=== PATIENT | male | born 2000 | race Caucasian/White ===

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

== ENCOUNTER 2020-02-04 10:38 | Emergency (ER) | payer BC ==
[2020-02-04] MEDS ORDERED: Ketorolac 60 MG/2 ML SDV IM ONE (11:10)
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
--- NOTE | 2020-02-04 19:40 | CR ---
Left knee: 4 views of the left knee were obtained. Comparison: No prior left knee study. Medial and lateral joint compartments are maintained in height. No joint effusion is seen. No acute fracture or other bony abnormality is appreciated. Impression: 1. No abnormality is appreciated on left knee study. Diagnostic code #1 This report was dictated in MDT
== END 2020-02-04 12:10 | disposition home or self-care (01) ==
LOC: JD.ED 10:38
DX: S89.92XA Unspecified injury of left lower leg, initial encounter (principal); V86.96XA Unspecified occupant of dirt bike or motor/cross bike injured in nontraffic accident, initial encounter
CPT/HCPCS: 73564; 96372; 99283; J1885